=== PATIENT | male | born 1965 ===

== ENCOUNTER 2019-02-23 16:00 | Outpatient (CLI) | payer OTHER ==
[~2019-02-23] VITALS: Ht 182.9 cm; Wt 88.0 kg
[~2019-02-23 16:00] MED LIST: COZAAR25 MG; ZOCOR20 MG
== END 2019-02-23 16:15 | disposition home or self-care (01) ==
LOC: OFIC 805 16:00
DX: H93.13 Tinnitus, bilateral (principal); H91.90 Unspecified hearing loss, unspecified ear

== ENCOUNTER 2019-02-25 11:29 | Outpatient (CLI) | payer OTHER | END 2019-02-25 13:19 | disposition home or self-care (01) | LOC: RAD 501 11:29 | DX: M25.562 Pain in left knee (principal); M25.561 Pain in right knee ==

== ENCOUNTER 2019-03-21 07:37 | Outpatient (CLI) | payer OTHER ==
[~2019-03-21] VITALS: Ht 182.9 cm; Wt 88.0 kg
== END 2019-03-21 08:00 | disposition home or self-care (01) ==
LOC: OFIC 805 07:37
DX: H93.13 Tinnitus, bilateral (principal); H91.90 Unspecified hearing loss, unspecified ear

== ENCOUNTER 2019-04-06 07:29 | Outpatient (CLI) | payer OTHER | END 2019-04-06 07:39 | disposition home or self-care (01) | LOC: MRI 07:29 | DX: M25.561 Pain in right knee (principal); M25.562 Pain in left knee; S89.92XA Unspecified injury of left lower leg, initial encounter; S89.91XA Unspecified injury of right lower leg, initial encounter | CPT/HCPCS: 73721 ==

== ENCOUNTER → 2019-07-03 | Outpatient (CLI) | payer OTHER ==
[~2019-07-03] VITALS: Ht 182.9 cm; Wt 87.1 kg
== END | disposition home or self-care (01) ==
LOC: OFIC 805 10:28
DX: H93.13 Tinnitus, bilateral (principal); H90.3 Sensorineural hearing loss, bilateral; M26.69 Other specified disorders of temporomandibular joint; J31.0 Chronic rhinitis